=== PATIENT | male | born 1950 | race Hispanic/Latino ===

== ENCOUNTER 2023-03-17 13:34 | Observation (INO) | payer MEDICARE, MEDICAID ==
[~2023-03-17] VITALS: Ht 170.2 cm; Wt 74.8 kg
[2023-03-17 15:00] LABS: BASOPHILS # (AUTO) 0.06 K/uL (0.00-0.20); BASOPHILS % (AUTO) 0.5 % (0.0-5.0); EOSINOPHILS % (AUTO) 0.9 % (0.0-8.0); HEMATOCRIT 39.6 % (42-54); IMMATURE GRANULOCYTE ABSOLUTE 0.04 K/uL (0-1); LYMPHOCYTES % (AUTO) 18.4 % (21.0-51.0); MEAN CORPUSCULAR HEMOGLOBIN 29.3 pg (27.0-33.0); MEAN CORPUSCULAR HGB CONC 33.3 g/dL (32.0-36.0); MEAN CORPUSCULAR VOLUME 87.8 fL (79-99); MONOCYTES # (AUTO) 1.2 K/uL (0.1-1.0); MONOCYTES % (AUTO) 11.3 % (3.0-13.0); NEUTROPHILS # (AUTO) 7.5 K/uL (1.8-7.7); NEUTROPHILS % (AUTO) 68.5 % (40.0-77.0); PLATELET COUNT (AUTO) 173 K/uL (130-400); RED BLOOD CELL COUNT(AUTO) 4.51 MIL/uL (4.50-6.20); RED CELL DISTRIBUTION WIDTH 13.4 % (11.0-15.5)
[2023-03-17] MEDS ORDERED: ASPIRIN 325MG TAB PO ONE (15:00)
[2023-03-17] MEDS ORDERED: HYDROCODONE/ACETAMINOPHEN 5/325 MG TAB PO ONE (15:00)
[2023-03-17 15:16] LABS: RAPID GROUP A STREP negative (NEGATIVE)
[2023-03-17 15:17] LABS: SARS-CoV-2, RNA, NAAT POSITIVE SARS CoV-2 (NEGATIVE)
[2023-03-17 15:18] LABS: POTASSIUM 4.3 mmol/L (3.5-5.1)
[2023-03-17 15:26] LABS: ALBUMIN 4.1 g/dL (3.5-5.0); BILIRUBIN,TOTAL 0.5 mg/dL (0.2-1.0); INFLUENZA TYPE A Negative For Type A (NEGATIVE); INFLUENZA TYPE B Negative For Type B (NEGATIVE); TOTAL PROTEIN, SERUM 8.3 g/dL (6.0-8.3)
[2023-03-17] MEDS ORDERED: GUAIFENESIN SUGAR-FREE 100 MG/5 ML UDCUP PO ONE (15:30)
[2023-03-17] MEDS ORDERED: LACTULOSE 20 GM/30 ML UDCUP PO PRN (16:00)
[2023-03-17] MEDS ORDERED: HYDROMORPHONE 1 MG INJ IV PRN (16:00)
[2023-03-17] MEDS ORDERED: DiphenhydrAMINE HCL 50 MG/ML VIAL IV PRN (16:00)
[2023-03-17] MEDS ORDERED: POTASSIUM CHLORIDE 20MEQ/100ML 100 ML IV PRN (16:00)
[2023-03-17] MEDS ORDERED: NITROGLYCERIN 0.4 MG SL TAB SL PRN (16:00)
[2023-03-17] MEDS ORDERED: MAGNESIUM 2GM PREMIX 50ML 50 ML IV PRN (16:00)
[2023-03-17] MEDS ORDERED: ACETAMINOPHEN 325 MG TAB PO PRN ×2 (16:00)
[2023-03-17] MEDS ORDERED: KCL 20 MEQ ERTAB PO PRN (16:00)
[2023-03-17] MEDS ORDERED: GLUCAGON 1MG KIT 1 MG ML IM PRN (16:00)
[2023-03-17] MEDS ORDERED: HYDROCODONE/ACETAMINOPHEN 5/325 MG TAB PO PRN ×2 (16:00)
[2023-03-17] MEDS ORDERED: MAG/ALUM/SIMETH 30 ML UDCUP PO PRN (16:00)
[2023-03-17] MEDS ORDERED: ONDANSETRON 4MG INJ IV PRN (16:00)
[2023-03-17] MEDS ORDERED: POTASSIUM CHLORIDE 10% ELIXIR 20 MEQ/15 ML UDCUP PO PRN (16:00)
[2023-03-17] MEDS ORDERED: GUAIFENESIN-DM 200/20 MG 10 ML PO PRN (16:00)
[2023-03-17] MEDS ORDERED: DEXTROSE 50%-WATER 50 ML DISP.SYRIN IV PRN (16:00)
[2023-03-17 16:19] LABS: INR < 0.93 (0.85-1.15); PROTHROMBIN TIME 10.3 SEC (9.6-11.6)
[2023-03-17 16:20] LABS: PARTIAL THROMBOPLASTIN TIME 31.3 SEC (26.3-35.5)
[2023-03-17 16:22] LABS: % IRON SATURATION 11.9 % (30-44); HEMOGLOBIN A1C 7.8 % (4.0-6.0)
[2023-03-17] MEDS ORDERED: HYDRALAZINE 20MG/ML VIAL IV PRN (16:30)
[2023-03-17] MEDS ORDERED: LABETALOL 20MG SYG IV PRN (16:30)
[2023-03-17] MEDS: INSULIN HUMULIN R 100 UNIT/ML 3ML SQ SCH ×2 (16:30→21:42)
[2023-03-17] MEDS: CLOPIDOGREL 75MG TAB PO SCH (17:33)
[2023-03-17] MEDS ORDERED: MECL-302 PO (17:56)
[2023-03-17] MEDS ORDERED: CLOP75TA32 PO (17:56)
[2023-03-17] MEDS ORDERED: LISI40TA9 PO (17:56)
[2023-03-17] MEDS ORDERED: ESCI-8 PO (17:56)
[2023-03-17] MEDS ORDERED: LOVA10TA2 PO (17:56)
[2023-03-17] MEDS ORDERED: OMEP40CA21 PO (17:56)
[2023-03-17] MEDS ORDERED: METO-408 PO (17:56)
[2023-03-17] MEDS ORDERED: HYDR-3421 PO (17:56)
[2023-03-17 18:28] VITALS: BP 151/68; PULSE 95; RESP 20
[2023-03-17 18:37] VITALS: O2SAT 99
[2023-03-17 19:00] VITALS: BP 119/98; PULSE 120; RESP 24
[2023-03-17 20:00] VITALS: O2SAT 95
[2023-03-17] MEDS: FAMOTIDINE 20MG VIAL IV SCH (21:00)
[2023-03-17] MEDS: ATORVASTATIN 40 MG TABLET PO SCH (21:34)
[2023-03-17] MEDS: FAMOTIDINE 20MG TAB PO SCH (21:34)
[2023-03-17] MEDS: BENZONATATE 100 MG CAPSULE PO SCH (21:34)
[2023-03-17] MEDS: DIPHENHYDRAMINE HCL 25 MG CAPSULE PO PRN (23:19)
[2023-03-18] VITALS (8 sets, daily range): BP systolic 107–177; BP diastolic 72–98; PULSE 66–115; RESP 16–20; O2SAT 97–98
[2023-03-18 06:00] LABS: BASOPHILS # (AUTO) 0.05 K/uL (0.00-0.20); BASOPHILS % (AUTO) 0.5 % (0.0-5.0); EOSINOPHILS # (AUTO) 0.06 K/uL (0.00-0.70); EOSINOPHILS % (AUTO) 0.6 % (0.0-8.0); HEMATOCRIT 37.6 % (42-54); IMMATURE GRANULOCYTE ABSOLUTE 0.02 K/uL (0-1); LYMPHOCYTES # (AUTO) 2.8 K/uL (1.0-4.8); LYMPHOCYTES % (AUTO) 28.1 % (21.0-51.0); MEAN CORPUSCULAR HEMOGLOBIN 28.9 pg (27.0-33.0); MEAN CORPUSCULAR HGB CONC 33.8 g/dL (32.0-36.0); MEAN CORPUSCULAR VOLUME 85.6 fL (79-99); MONOCYTES # (AUTO) 1.7 K/uL (0.1-1.0); MONOCYTES % (AUTO) 17.1 % (3.0-13.0); NEUTROPHILS # (AUTO) 5.2 K/uL (1.8-7.7); NEUTROPHILS % (AUTO) 53.5 % (40.0-77.0); PLATELET COUNT (AUTO) 180 K/uL (130-400); RED BLOOD CELL COUNT(AUTO) 4.39 MIL/uL (4.50-6.20); RED CELL DISTRIBUTION WIDTH 13.7 % (11.0-15.5); WHITE BLOOD COUNT (AUTO) 9.8 K/uL (4.8-10.8)
[2023-03-18 06:11] LABS: CREATININE 1.2 mg/dL (0.5-1.5); MAGNESIUM 1.5 mg/dL (1.80-2.40); PHOSPHORUS 4.2 mg/dL (2.5-4.9); POTASSIUM 3.8 mmol/L (3.5-5.1)
[2023-03-18] MEDS: INSULIN HUMULIN R 100 UNIT/ML 3ML SQ SCH ×4 (08:32→21:00)
[2023-03-18] MEDS: ASPIRIN 81 MG EC TAB PO SCH (08:34)
[2023-03-18] MEDS: ENOXAPARIN SODIUM 40 MG/0.4 ML SYRINGE SQ SCH (08:35)
[2023-03-18] MEDS: FAMOTIDINE 20MG VIAL IV SCH ×2 (08:35→21:00)
[2023-03-18] MEDS: BENZONATATE 100 MG CAPSULE PO SCH ×3 (08:35→21:31)
[2023-03-18] MEDS: CLOPIDOGREL 75MG TAB PO SCH (08:35)
[2023-03-18] MEDS: FAMOTIDINE 20MG TAB PO SCH ×2 (08:49→21:31)
[2023-03-18] MEDS ORDERED: KETAMINE HCL 100 MG/ML 5ML VIAL IJ ONE (10:40)
[2023-03-18] MEDS: ATORVASTATIN 40 MG TABLET PO SCH (21:31)
[2023-03-18] MEDS: DIPHENHYDRAMINE HCL 25 MG CAPSULE PO PRN (21:39)
[2023-03-19 03:23] VITALS: BP 167/82; PULSE 71; RESP 18
[2023-03-19 04:59] LABS: BASOPHILS # (AUTO) 0.06 K/uL (0.00-0.20); BASOPHILS % (AUTO) 0.8 % (0.0-5.0); EOSINOPHILS # (AUTO) 0.17 K/uL (0.00-0.70); EOSINOPHILS % (AUTO) 2.2 % (0.0-8.0); HEMATOCRIT 37.6 % (42-54); IMMATURE GRANULOCYTE ABSOLUTE 0.02 K/uL (0-1); LYMPHOCYTES # (AUTO) 2.1 K/uL (1.0-4.8); LYMPHOCYTES % (AUTO) 27.7 % (21.0-51.0); MEAN CORPUSCULAR HEMOGLOBIN 29.6 pg (27.0-33.0); MEAN CORPUSCULAR HGB CONC 34.6 g/dL (32.0-36.0); MEAN CORPUSCULAR VOLUME 85.6 fL (79-99); MONOCYTES # (AUTO) 1.5 K/uL (0.1-1.0); MONOCYTES % (AUTO) 19.3 % (3.0-13.0); NEUTROPHILS # (AUTO) 3.8 K/uL (1.8-7.7); NEUTROPHILS % (AUTO) 49.7 % (40.0-77.0); PLATELET COUNT (AUTO) 171 K/uL (130-400); RED BLOOD CELL COUNT(AUTO) 4.39 MIL/uL (4.50-6.20); RED CELL DISTRIBUTION WIDTH 13.8 % (11.0-15.5); WHITE BLOOD COUNT (AUTO) 7.6 K/uL (4.8-10.8)
[2023-03-19 05:12] LABS: CREATININE 1.1 mg/dL (0.5-1.5); POTASSIUM 4.1 mmol/L (3.5-5.1)
[2023-03-19] MEDS: INSULIN HUMULIN R 100 UNIT/ML 3ML SQ SCH ×2 (06:32→11:48)
[2023-03-19 07:52] VITALS: O2SAT 98
[2023-03-19 07:59] VITALS: BP 150/73; PULSE 78; RESP 19
[2023-03-19] MEDS: FAMOTIDINE 20MG VIAL IV SCH (09:00)
[2023-03-19] MEDS: ASPIRIN 81 MG EC TAB PO SCH (09:15)
[2023-03-19] MEDS: CLOPIDOGREL 75MG TAB PO SCH (09:15)
[2023-03-19] MEDS: FAMOTIDINE 20MG TAB PO SCH (09:15)
[2023-03-19] MEDS: ENOXAPARIN SODIUM 40 MG/0.4 ML SYRINGE SQ SCH (09:18)
[2023-03-19] MEDS: BENZONATATE 100 MG CAPSULE PO SCH (09:19)
[2023-03-19 11:35] VITALS: BP 151/89; PULSE 76; RESP 20
[2023-03-19] MEDS ORDERED: BENZ-226 PO (12:44)
[2023-03-19] MEDS ORDERED: ATOR40TA69 PO (12:44)
== END 2023-03-19 14:20 | disposition home or self-care (01) ==
LOC: EDH 13:34 → EDHIP 15:54 → 4CH 18:11
PROVIDERS: ADMIT Internal Medicine; ATTEND Internal Medicine
DX: U07.1 COVID-19 (principal); B34.9 Viral infection, unspecified; I10 Essential (primary) hypertension; E78.5 Hyperlipidemia, unspecified; I73.9 Peripheral vascular disease, unspecified; E78.00 Pure hypercholesterolemia, unspecified; E11.51 Type 2 diabetes mellitus with diabetic peripheral angiopathy without gangrene; Z87.891 Personal history of nicotine dependence; Z79.899 Other long term (current) drug therapy
CPT/HCPCS: 96375 ×2; 99285; 83036; 84443; 83540; 83550; 84484; 80053; 83880; 85025 ×3; 85610; 85730; 87880; 87804 ×2; 82948 ×7; 83605; 36415 ×3; 87635; 71045; 93005; 84145; 96365; 96366; 83735; 84100; 80048 ×2; 93306; 93356; Q0163 ×2; J1815 ×3; G0378 ×45; C9803; J0360; J3475; J3490 ×2; J1650 ×2